=== PATIENT | male | born 1940 | race Caucasian/White ===

== ENCOUNTER 2018-01-16 22:24 | Emergency (ER) | payer MEDICARE, OTHER, SELFPAY ==
[2018-01-16 22:50] VITALS: BP 137/73; PULSE 81; RESP 20; TEMP 37.9; O2SAT 95; BMI 36.5
--- NOTE | 2018-01-16 23:09 | ED.SKABFB ---
HPI - Skin/Abscess/Foreign Bdy General Chief complaint: Skin/Abscess/Foreign Body Stated complaint: DRAIN TUBES IN STOMACH INCISION SITE IS SWELING Time Seen by Provider: 01/16/18 22:29 Source: patient and family Mode of arrival: ambulatory Limitations: no limitations History of Present Illness HPI narrative: Patient with extensive medical history including coronary artery disease status post CABG with prolonged length of stay presents to the emergency department this evening with a chief complaint of purulent drainage from chest tube insertion site on his left anterior chest. He just had the sutures in bandage removed a few days ago and today in the shower noted drainage. He has had a low-grade fever but denies any significant shortness of breath, chest pain nor nausea or vomiting. Feels fatigued but denies other specific symptoms. Bypass was on December 20 and he had complications requiring another 3 weeks of hospitalization including 3 chest tubes. He has had trouble with what sounds like a large left-sided pleural effusion versus clot within the pleura that is set to be addressed by cardiothoracic surgery at [facility] later this week Onset (ago): hour(s) Tetanus up to date: yes Location: chest (Left anterior chest tube insertion site) Severity: mild Related Data Home Medications Medication Instructions Recorded Confirmed aspirin #0 07/31/16 colchicine 0.6 mg PO QDAY #0 07/31/16 indomethacin 50 mg PO BIDP PRN #0 07/31/16 Previous Rx's Medication Instructions Recorded colchicine [Mitigare] 0.6 mg PO BID #14 cap 07/31/16 triamcinolone acetonide 1 andre TOPICAL BID #15 gm 07/31/16 oxycodone-acetaminophen [Percocet] 1 tab PO Q4HP PRN #15 tab 09/27/16 tamsulosin [Flomax] 0.4 mg PO Q DAY #7 cap 09/27/16 Allergies Allergy/AdvReac Type Severity Reaction Status Date / Time grass pollen [GRASS POLLEN] Allergy Unknown Verified 01/16/18 22:57 Review of Systems Review of Systems All systems reviewed & are unremarkable except as noted in HPI and below Constitutional Denies chills, Reports fatigue, Reports fever(s), Denies lethargy and Denies weakness Eyes Denies change in vision, Denies eye discharge, Denies irritation and Denies loss of vision ENT Ears, Nose, Mouth, and Throat: Denies change in voice, Denies neck pain and Denies sore throat Cardiovascular Denies chest pain, Denies irregular heart rhythm, Denies lightheadedness, Denies palpitations, Denies dyspnea, Denies dyspnea on exertion and Denies orthopnea Respiratory Denies cough, Denies dyspnea, Denies dyspnea on exertion and Denies wheezing Gastrointestinal Gastrointestinal: Denies abdominal pain, Denies change in bowel habits, Denies diarrhea, Denies nausea and Denies vomiting Genitourinary Denies hematuria, Denies flank pain, Denies urinary incontinence and Denies urinary urgency Musculoskeletal Denies neck pain Integumentary/Breasts Denies pruritus, Denies erythema, Denies rash and Denies wounds Comments: Wound dehiscence with purulent drainage from left anterior chest tube insertion site Neurologic Denies confusion, Denies loss of vision and Denies weakness Psychiatric Denies anxiety, Denies confusion, Denies depression, Denies homicidal ideation and Denies suicidal ideation Endocrine Reports fatigue and Denies palpitations Hematologic/Lymphatic Denies easy bruising Allergic/Immunologic Denies wheezing COUNT INCLUDES THE [facility] Medical History CAD (coronary artery disease) (Acute) HTN (hypertension) (Acute) Hyperlipidemia (Acute) Surgical History Hx of CABG (Acute) Social History Smoking Status: Never smoker Exam Narrative Exam Narrative: Pleasant 77-year-old male in mild distress. He appears fatigued and unwell Initial Vital Signs Initial Vital Signs: Vital Signs Temperature 100.2 F H 01/16/18 22:50 Pulse Rate 81 01/16/18 22:50 Respiratory Rate 20 01/16/18 22:50 Blood Pressure 137/73 H 01/16/18 22:50 Pulse Oximetry 95 01/16/18 22:50 Const General: cooperative, comfortable, well developed, in distress and ill appearing Nutritional Appearance: well nourished Orientation: alert, awake, oriented x3 and not confused HENMS Head: normocephalic and atraumatic Ears: external ears normal and TM's normal bilaterally Nose: external nose normal and No nasal discharge Face and sinus: sinuses nontender, face symmetric, no sinus tenderness and No dry mucous membranes Mouth: oral mucosae normal and moist mucous membranes Teeth and gingiva: dentition normal Throat: tonsils normal and uvula midline Chest Other: Wound dehiscence with purulent drainage left anterior chest tube insertion site. No underlying induration, fluctuance or tenderness Resp Effort & Inspection: normal respiratory effort, able to speak in complete sentences, no respiratory distress and no use of accessory muscles Auscultation: clear to auscultation bilaterally, breath sounds absent on th left, no rales, no rhonchi and no wheezes Cardio Rate: regular rate Rhythm: regular rhythm Heart Sounds: no click, no gallops, no murmurs and no rubs Pulses: normal peripheral pulses GI Inspection: non-distended Palpation: soft, no hepatosplenomegaly, No guarding, No pulsatile mass and No tender Auscultation: normal bowel sounds Back/Spine/Pelvis Back: No CVA tenderness Cervical Spine: cervical ROM normal and No pain with cervical ROM Thoracic/Lumbar Spine: thoracic and lumbar spine normal to inspection Skin General: no rashes or lesions noted, No jaundice and No petechiae Neuro General: alert, oriented x3, gait normal and no focal motor deficits Speech: speech normal Extrem General: full ROM, no clubbing, cyanosis or edema, no pedal edema and no calf tenderness Course Orders Ordered: ED Orders 01/16/18 23:49 XR chest 1V Stat 01/17/18 00:01 Wound Culture and Gram Stain Stat 01/17/18 00:17 BNP [B Type Natriuretic Peptide] Stat Basic Metabolic Panel Stat Complete Blood Count AUTO DIFF Stat Lactate (Lactic Acid) Stat Procalcitonin Stat Troponin with CK Cardiac Panel Stat 01/17/18 00:40 Blood Culture Stat Consultations Consultation #1: Called to cardiothoracic surgeon Dr. Peterson and after discussion of history, physical exam findings he request patient be sent to [facility] emergency department. I was transferred to the emergency department and spoke with Dr. James combs a regarding this patient. He is happy to accept the patient into the emergency department. Family refuses transport by EMS and feel comfortable driving by private auto. I discussed with them this is not the standard of care including risks of any deterioration in route. They understand these risks Time: 02:05 Vital Signs - 8 hr 01/16/18 22:50 Temperature 100.2 F H Pulse Rate 81 Respiratory Rate 20 Blood Pressure 137/73 H Pulse Oximetry 95 MDM - Skin/Abscess/Foreign Bdy Differential Diagnosis Likely abscess of skin or subcutaneous tissue Medical Records Attestation: I reviewed the patient's medical records. Lab Data Attestation: I reviewed the patient's lab results. Result diagrams: 01/17/18 00:17 01/17/18 00:17 Lab Results 01/17/18 01/17/18 01/17/18 Range/Units 00:17 00:17 00:17 WBC 7.2 (4.5-11.0) X10^3/uL RBC 3.94 L (4.5-5.9) X10^6/uL Hgb 11.6 L (13.5-17.5) g/dL Hct 34.9 L (41-53) % MCV 88.6 (80-100) fL MCH 29.3 (26-34) PG MCHC 33.1 (30-36) % RDW 18.2 H (11.6-14.8) % Plt Count 378 (150-400) X10^3/uL Neut % (Auto) 72.0 (50-75) % Lymph % (Auto) 14.7 L (25-40) % [place] % (Auto) 9.3 (3-14) % Eos % (Auto) 3.6 (2-4) % Baso % (Auto) 0.4 (0-2) % Neut # (Auto) 5200 (8328-4391) /uL Sodium (137-145) mmol/L Potassium (3.4-5.1) mmol/L Chloride (98-107) mmol/L Carbon Dioxide (22-32) mmol/L BUN (9-20) mg/dL Creatinine (0.66-1.25) mg/dL Estimated GFR (>60) mL/min BUN/Creatinine Ratio (6-22) Glucose (80-110) mg/dL Lactate (0.7-2.1) mmol/L Calcium (8.4-10.2) mg/dL Total Creatine Kinase 43 L (55-170) U/L Troponin I 0.026 (0.01-0.034) ng/mL B-Natriuretic Peptide (<100) Procalcitonin < 0.05 (<0.5) ng/mL 01/17/18 01/17/18 01/17/18 Range/Units 00:17 00:17 00:17 WBC (4.5-11.0) X10^3/uL RBC (4.5-5.9) X10^6/uL Hgb (13.5-17.5) g/dL Hct (41-53) % MCV (80-100) fL MCH (26-34) PG MCHC (30-36) % RDW (11.6-14.8) % Plt Count (150-400) X10^3/uL Neut % (Auto) (50-75) % Lymph % (Auto) (25-40) % [place] % (Auto) (3-14) % Eos % (Auto) (2-4) % Baso % (Auto) (0-2) % Neut # (Auto) (8453-9732) /uL Sodium 138 (137-145) mmol/L Potassium 4.8 (3.4-5.1) mmol/L Chloride 104.0 (98-107) mmol/L Carbon Dioxide 22.0 (22-32) mmol/L BUN 27.0 H (9-20) mg/dL Creatinine 1.30 H (0.66-1.25) mg/dL Estimated GFR 53.5 L (>60) mL/min BUN/Creatinine Ratio 20.8 (6-22) Glucose 114 H (80-110) mg/dL Lactate 0.8 (0.7-2.1) mmol/L Calcium 9.2 (8.4-10.2) mg/dL Total Creatine Kinase (55-170) U/L Troponin I (0.01-0.034) ng/mL B-Natriuretic Peptide 334.0 (<100) Procalcitonin (<0.5) ng/mL Imaging Data Chest x-ray: My impression: large left sided pleural effusion MDM Narrative Medical decision making narrative: Called to cardiothoracic surgery and emergency department with willing except and the patient's. Images pushed. At all forms completed and placed in folder to go with patient. Discussion at bedside with family regarding method of transport including risks associated with POV. Discharge Plan Departure Patient Disposition: [facility] Clinical Impression: Deep incisional surgical site infection Activity Restrictions/Additional Instructions: Proceed DIRECTLY to the Emergency Department at [facility] (map included) Do not eat anything until you are seen and evaluated at [facility] If any concerning symptoms develop en route, lathe puller immediately and call 911. Prescriptions: No Action aspirin 81 MG tablet,delayed release (DR/EC) Qty: 0 RF: 0 colchicine 0.6 MG tablet 0.6 mg PO QDAY Qty: 0 RF: 0 indomethacin 50 MG capsule 50 mg PO BIDP PRNQty: 0 RF: 0 colchicine [Mitigare] 0.6 MG capsule 0.6 mg PO BID Qty: 14 RF: 0 triamcinolone acetonide 0.1 % cream 1 andre Topical BID Qty: 15 RF: 0 oxycodone-acetaminophen [Percocet] 5 MG/325 MG tablet 1 tab PO Q4HP PRNQty: 15 RF: 0 tamsulosin [Flomax] 0.4 MG capsule,extended release 24hr 0.4 mg PO Q DAY Qty: 7 RF: 0
--- NOTE | 2018-01-16 23:49 | DI.RAD.S_ITS ---
PROCEDURE: XR CHEST 1V INDICATIONS: SOB TECHNIQUE: One view of the chest was acquired. COMPARISON: [facility], CT, KIDNEY/ URETER/BLADDER, 09/27/2016, 1:15. FINDINGS: Surgical changes and devices: There are postsurgical changes demonstrated in mediastinum compatible with prior CABG. Lungs and pleura: There is a moderate to large left pleural effusion with left basilar consolidation or compressive atelectasis. The right lung appears clear. Mediastinum: The left heart contours are obscured limiting evaluation of heart size. There is prominence of the mediastinal contours which is nonspecific. There is a large hiatal hernia redemonstrated. Bones and chest wall: No suspicious bony lesions. Overlying soft tissues appear unremarkable. IMPRESSION: 1. Moderate to large left pleural effusion with left basilar consolidation or compressive atelectasis. 2. Widening of the mediastinal contours of indeterminate etiology. Recommend a PA and lateral study when clinically feasible. 3. Large hiatal hernia redemonstrated. Dictated by: Abdulaziz Turner M.D. on 01/17/2018 at 10:30 Approved by: Abdulaziz Turner M.D. on 01/17/2018 at 10:33
[2018-01-17 00:34] LABS: Add Manual Diff / Slide Review NO; Basophils Percent Auto 0.4 % (0-2); Eosinophils Percent Auto 3.6 % (2-4); Hematocrit 34.9 % (41-53); Hemoglobin 11.6 g/dL (13.5-17.5); Lymphocytes Percent Auto 14.7 % (25-40); Mean Corpuscular HGB Conc 33.1 % (30-36); Mean Corpuscular Hemoglobin 29.3 PG (26-34); Mean Corpuscular Volume 88.6 fL (80-100); Monocytes Percent Auto 9.3 % (3-14); Neutrophils Absolute Auto 5200 /uL (3000-5900); Platelet Count 378 X10^3/uL (150-400); Red Blood Cell Count 3.94 X10^6/uL (4.5-5.9); Red Cell Distribution Width 18.2 % (11.6-14.8); White Blood Cell Count 7.2 X10^3/uL (4.5-11.0)
[2018-01-17 00:38] LABS: Lactate (Lactic Acid) 0.8 mmol/L (0.7-2.1)
[2018-01-17 00:41] LABS: Creatine Kinase 43 U/L (55-170)
[2018-01-17 00:54] LABS: Troponin I 0.026 ng/mL (0.01-0.034)
[2018-01-17 00:55] LABS: BUN Creatinine Ratio 20.8 (6-22); Calcium 9.2 mg/dL (8.4-10.2); Estimated Glomerular Filt Rate 53.5 mL/min (>60); Glucose 114 mg/dL (80-110); Sodium 138 mmol/L (137-145)
[2018-01-17 00:58] LABS: HEMOLYSIS 70 (0-50)
[2018-01-17 01:00] LABS: Potassium 4.8 mmol/L (3.4-5.1); Procalcitonin < 0.05 ng/mL (<0.5)
--- NOTE | 2018-01-17 02:07 | ED_ITS ---
HPI - Skin/Abscess/Foreign Bdy General Chief complaint: Skin/Abscess/Foreign Body Stated complaint: DRAIN TUBES IN STOMACH INCISION SITE IS SWELING Time Seen by Provider: 01/16/18 22:29 Source: patient and family Mode of arrival: ambulatory Limitations: no limitations History of Present Illness HPI narrative: Patient with extensive medical history including coronary artery disease status post CABG with prolonged length of stay presents to the emergency department this evening with a chief complaint of purulent drainage from chest tube insertion site on his left anterior chest. He just had the sutures in bandage removed a few days ago and today in the shower noted drainage. He has had a low-grade fever but denies any significant shortness of breath, chest pain nor nausea or vomiting. Feels fatigued but denies other specific symptoms. Bypass was on December 20 and he had complications requiring another 3 weeks of hospitalization including 3 chest tubes. He has had trouble with what sounds like a large left-sided pleural effusion versus clot within the pleura that is set to be addressed by cardiothoracic surgery at [facility] later this week Onset (ago): hour(s) Tetanus up to date: yes Location: chest (Left anterior chest tube insertion site) Severity: mild Related Data Home Medications Medication Instructions Recorded Confirmed aspirin #0 07/31/16 colchicine 0.6 mg PO QDAY #0 07/31/16 indomethacin 50 mg PO BIDP PRN #0 07/31/16 Previous Rx's Medication Instructions Recorded colchicine [Mitigare] 0.6 mg PO BID #14 cap 07/31/16 triamcinolone acetonide 1 andre TOPICAL BID #15 gm 07/31/16 oxycodone-acetaminophen [Percocet] 1 tab PO Q4HP PRN #15 tab 09/27/16 tamsulosin [Flomax] 0.4 mg PO Q DAY #7 cap 09/27/16 Allergies Allergy/AdvReac Type Severity Reaction Status Date / Time grass pollen [GRASS POLLEN] Allergy Unknown Verified 01/16/18 22:57 Review of Systems Review of Systems All systems reviewed & are unremarkable except as noted in HPI and below Constitutional Denies chills, Reports fatigue, Reports fever(s), Denies lethargy and Denies weakness Eyes Denies change in vision, Denies eye discharge, Denies irritation and Denies loss of vision ENT Ears, Nose, Mouth, and Throat: Denies change in voice, Denies neck pain and Denies sore throat Cardiovascular Denies chest pain, Denies irregular heart rhythm, Denies lightheadedness, Denies palpitations, Denies dyspnea, Denies dyspnea on exertion and Denies orthopnea Respiratory Denies cough, Denies dyspnea, Denies dyspnea on exertion and Denies wheezing Gastrointestinal Gastrointestinal: Denies abdominal pain, Denies change in bowel habits, Denies diarrhea, Denies nausea and Denies vomiting Genitourinary Denies hematuria, Denies flank pain, Denies urinary incontinence and Denies urinary urgency Musculoskeletal Denies neck pain Integumentary/Breasts Denies pruritus, Denies erythema, Denies rash and Denies wounds Comments: Wound dehiscence with purulent drainage from left anterior chest tube insertion site Neurologic Denies confusion, Denies loss of vision and Denies weakness Psychiatric Denies anxiety, Denies confusion, Denies depression, Denies homicidal ideation and Denies suicidal ideation Endocrine Reports fatigue and Denies palpitations Hematologic/Lymphatic Denies easy bruising Allergic/Immunologic Denies wheezing [facility] Medical History CAD (coronary artery disease) (Acute) HTN (hypertension) (Acute) Hyperlipidemia (Acute) Surgical History Hx of CABG (Acute) Social History Smoking Status: Never smoker Exam Narrative Exam Narrative: Pleasant 77-year-old male in mild distress. He appears fatigued and unwell Initial Vital Signs Initial Vital Signs: Vital Signs Temperature 100.2 F H 01/16/18 22:50 Pulse Rate 81 01/16/18 22:50 Respiratory Rate 20 01/16/18 22:50 Blood Pressure 137/73 H 01/16/18 22:50 Pulse Oximetry 95 01/16/18 22:50 Const General: cooperative, comfortable, well developed, in distress and ill appearing Nutritional Appearance: well nourished Orientation: alert, awake, oriented x3 and not confused HENID Head: normocephalic and atraumatic Ears: external ears normal and TM's normal bilaterally Nose: external nose normal and No nasal discharge Face and sinus: sinuses nontender, face symmetric, no sinus tenderness and No dry mucous membranes Mouth: oral mucosae normal and moist mucous membranes Teeth and gingiva: dentition normal Throat: tonsils normal and uvula midline Chest Other: Wound dehiscence with purulent drainage left anterior chest tube insertion site. No underlying induration, fluctuance or tenderness Resp Effort & Inspection: normal respiratory effort, able to speak in complete sentences, no respiratory distress and no use of accessory muscles Auscultation: clear to auscultation bilaterally, breath sounds absent on th left , no rales, no rhonchi and no wheezes Cardio Rate: regular rate Rhythm: regular rhythm Heart Sounds: no click, no gallops, no murmurs and no rubs Pulses: normal peripheral pulses GI Inspection: non-distended Palpation: soft, no hepatosplenomegaly, No guarding, No pulsatile mass and No tender Auscultation: normal bowel sounds Back/Spine/Pelvis Back: No CVA tenderness Cervical Spine: cervical ROM normal and No pain with cervical ROM Thoracic/Lumbar Spine: thoracic and lumbar spine normal to inspection Skin General: no rashes or lesions noted, No jaundice and No petechiae Neuro General: alert, oriented x3, gait normal and no focal motor deficits Speech: speech normal Extrem General: full ROM, no clubbing, cyanosis or edema, no pedal edema and no calf tenderness Course Orders Ordered: ED Orders 01/16/18 23:49 XR chest 1V Stat 01/17/18 00:01 Wound Culture and Gram Stain Stat 01/17/18 00:17 BNP [B Type Natriuretic Peptide] Stat Basic Metabolic Panel Stat Complete Blood Count AUTO DIFF Stat Lactate (Lactic Acid) Stat Procalcitonin Stat Troponin with CK Cardiac Panel Stat 01/17/18 00:40 Blood Culture Stat Consultations Consultation #1: Called to cardiothoracic surgeon Dr. Peterson and after discussion of history, physical exam findings he request patient be sent to [facility] emergency department. I was transferred to the emergency department and spoke with Dr. James combs a regarding this patient. He is happy to accept the patient into the emergency department. Family refuses transport by EMS and feel comfortable driving by private auto. I discussed with them this is not the standard of care including risks of any deterioration in route. They understand these risks Time: 02:05 Vital Signs - 8 hr 01/16/18 22:50 Temperature 100.2 F H Pulse Rate 81 Respiratory Rate 20 Blood Pressure 137/73 H Pulse Oximetry 95 MDM - Skin/Abscess/Foreign Bdy Differential Diagnosis Likely abscess of skin or subcutaneous tissue Medical Records Attestation: I reviewed the patient's medical records. Lab Data Attestation: I reviewed the patient's lab results. Result diagrams: 01/17/18 00:17 01/17/18 00:17 Lab Results 01/17/18 01/17/18 01/17/18 Range/Units 00:17 00:17 00:17 WBC 7.2 (4.5-11.0) X10^3/uL RBC 3.94 L (4.5-5.9) X10^6/uL Hgb 11.6 L (13.5-17.5) g/dL Hct 34.9 L (41-53) % MCV 88.6 (80-100) fL MCH 29.3 (26-34) PG MCHC 33.1 (30-36) % RDW 18.2 H (11.6-14.8) % Plt Count 378 (150-400) X10^3/uL Neut % (Auto) 72.0 (50-75) % Lymph % (Auto) 14.7 L (25-40) % [place] % (Auto) 9.3 (3-14) % Eos % (Auto) 3.6 (2-4) % Baso % (Auto) 0.4 (0-2) % Neut # (Auto) 5200 (1890-5727) /uL Sodium (137-145) mmol/L Potassium (3.4-5.1) mmol/L Chloride (98-107) mmol/L Carbon Dioxide (22-32) mmol/L BUN (9-20) mg/dL Creatinine (0.66-1.25) mg/dL Estimated GFR (>60) mL/min BUN/Creatinine Ratio (6-22) Glucose (80-110) mg/dL Lactate (0.7-2.1) mmol/L Calcium (8.4-10.2) mg/dL Total Creatine Kinase 43 L (55-170) U/L Troponin I 0.026 (0.01-0.034) ng/mL B-Natriuretic Peptide (<100) Procalcitonin < 0.05 (<0.5) ng/mL 01/17/18 01/17/18 01/17/18 Range/Units 00:17 00:17 00:17 WBC (4.5-11.0) X10^3/uL RBC (4.5-5.9) X10^6/uL Hgb (13.5-17.5) g/dL Hct (41-53) % MCV (80-100) fL MCH (26-34) PG MCHC (30-36) % RDW (11.6-14.8) % Plt Count (150-400) X10^3/uL Neut % (Auto) (50-75) % Lymph % (Auto) (25-40) % [place] % (Auto) (3-14) % Eos % (Auto) (2-4) % Baso % (Auto) (0-2) % Neut # (Auto) (7900-3001) /uL Sodium 138 (137-145) mmol/L Potassium 4.8 (3.4-5.1) mmol/L Chloride 104.0 (98-107) mmol/L Carbon Dioxide 22.0 (22-32) mmol/L BUN 27.0 H (9-20) mg/dL Creatinine 1.30 H (0.66-1.25) mg/dL Estimated GFR 53.5 L (>60) mL/min BUN/Creatinine Ratio 20.8 (6-22) Glucose 114 H (80-110) mg/dL Lactate 0.8 (0.7-2.1) mmol/L Calcium 9.2 (8.4-10.2) mg/dL Total Creatine Kinase (55-170) U/L Troponin I (0.01-0.034) ng/mL B-Natriuretic Peptide 334.0 (<100) Procalcitonin (<0.5) ng/mL Imaging Data Chest x-ray: My impression: large left sided pleural effusion MDM Narrative Medical decision making narrative: Called to cardiothoracic surgery and emergency department with willing except and the patient's. Images pushed. At all forms completed and placed in folder to go with patient. Discussion at bedside with family regarding method of transport including risks associated with POV. Discharge Plan Departure Patient Disposition: [facility] Clinical Impression: Deep incisional surgical site infection Activity Restrictions/Additional Instructions: Proceed DIRECTLY to the Emergency Department at [facility] (map included) Do not eat anything until you are seen and evaluated at [facility] If any concerning symptoms develop en route, pot puller immediately and call 911. Prescriptions: No Action aspirin 81 MG tablet,delayed release (DR/EC) Qty: 0 RF: 0 colchicine 0.6 MG tablet 0.6 mg PO QDAY Qty: 0 RF: 0 indomethacin 50 MG capsule 50 mg PO BIDP PRNQty: 0 RF: 0 colchicine [Mitigare] 0.6 MG capsule 0.6 mg PO BID Qty: 14 RF: 0 triamcinolone acetonide 0.1 % cream 1 andre Topical BID Qty: 15 RF: 0 oxycodone-acetaminophen [Percocet] 5 MG/325 MG tablet 1 tab PO Q4HP PRNQty: 15 RF: 0 tamsulosin [Flomax] 0.4 MG capsule,extended release 24hr 0.4 mg PO Q DAY Qty: 7 RF: 0
== END 2018-01-17 02:15 | disposition short-term general hospital (02) ==
PROVIDERS: Emergency Provider Emergency Medicine
DX: T81.4XXA Infection following a procedure, initial encounter (principal)
CPT/HCPCS: 36415; 36591; 71045; 80048; 82550; 82553; 83605; 83880; 84145; 84484; 85025; 87040; 87070; 87075; 87077; 87186; 87205; 99283; 99284

== ENCOUNTER 2018-06-23 10:00 | Outpatient (RCR) | payer MEDICARE, OTHER, SELFPAY ==
[2018-02-08 13:53] VITALS: BP 120/64; BP 122/66; BMI 33.6
--- NOTE | 2018-02-08 14:40 | CR.IEVALNOTE ---
CABG X 2 12/20/17 MCKEON-LAD, REVERSE SAPH-DISTAL RCA CR Initial Assessment Report CR Cardiac Rehab Initial Assessment Start: 02/08/18 13:39 Freq: Status: Active Protocol: Document 02/08/18 13:53 SHIRA (Rec: 02/08/18 14:21 SHIRA [id number]) Cardiac Rehabilitation Exercise Risk Risk Moderate % 66 EF Comment: 01/18/18 AICD No Pacemaker No Heart Rhythm sr Left Arm Blood Pressure (90/60-120/80 mmHg) 122/66 H Blood Pressure Method Manual Cuff/Auscultation Right Arm Blood Pressure (90/60-120/80 mmHg) 120/64 Blood Pressure Method Manual Cuff/Auscultation Blood Pressure Position Sitting Apical Resting Heart Rate: 88 Pulse Assessment Method Pulse Ox/Monitor Cardiac Rehabilitation Exercise Fall Risk History of Falling (Immediate or No Previous) Secondary Diagnosis (More Than 2 Medical Yes Diagnoses) Ambulatory Aid Crutches/cane/walker IV/Heparin Lock No Gait/Transferring Normal/bedrest/immobile Mental Status Oriented to own ability Score Total 30 Risk Level Moderate Fall Risk Action Implement Moderate Fall Risk Precautions Comment using walker since surgery. 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. Invited to education sessions to hear the latest in cardiac research Nurse/Patient Discussion Yes Patient Following Diet Plan No Patient's Nutritional Goals he didn't really list any. in his opinion, they eat well. recently gave up drinking a ton of Pepsi because the doctor told him to. Education Primary Language [place] Speech Impairment(s) no Pulp Roller Required No Hearing Ability Hard of Hearing Comment on Hearing has hearing aids but didn't wear them on intake. new prior to surgery Visual Impairment No Limitations Visual Difficutly None Education on Intake Chest Pain Short of Breath Headache Lightheaded or Dizzy Musculoskeletal Pain General Malaise Tobacco Use N/A Hx Hypertension Yes Medications amlodipine 10mg, metoprolol 50mg qd, Goal of BP <130/80 Yes HTN Education Discussion yes. reviewed effects of exercise on bp Medications Reconciled Yes CR Psychosocial Evaluation Goal Per pt, not a group person and here somewhat reluctantly. discussed benefits of monitored exercise with in room and she commented that this is a safe place to increase activity. Identifies Stressors states normally life isn't stressful but that the prolonged recovery and lack of energy is really an issue. 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 Edema slight Stress Management Class Yes Heart Disease & Emotion Film Yes Readiness Cooperative Patient's Story Increasing fatigue over a few months and failed stress test. Treatment Prescribed for Individual Yes Needs No Treatment Change Yes: Please Continue with Cardiopulmonary Rehabilitation as Ordered Date 02/08/18 Document 02/08/18 14:28 CFS (Rec: 02/08/18 14:38 CFS [id number]) Cardiac Rehabilitation Exercise Fall Risk Comment Will use saucer while on physioball and be next to railing. Comment: Does not use much at home, only while out and about. Home Exercise none current Symptoms: Abnormal Gait Body Alignment Posture Forward Head Leaning Ambulation Assistive Device Front Wheeled Walker Orthotic/Prosthetic Devices or Brace: No Exercise TM METS 1.77 Angina with Exercise no Exercise Tolerance Fair Additional Comment shuffle CR Pre Exercise Evaluation Orientation Self Pulse Check LINN PRE Scale Exercise Safety Equipment Orientation Warm Up/Cool Down Patient Short-term Goal(s) perform 20min on TM continuously at a met level of 2.5 in 6 weeks. Patient Assisted Goal(s) Decrease fatigue by exerciseing regularly in CR and home. And performing 40 min of continously cardio in 12 weeks. CR Exercises Prescription Exercise Duration (minutes) 20 METs (resistance level) 2 Frequency 2x/wk RPE 11-14 Exercise Duration (minutes) 20 METs (resistance level) 2 Frequency 2x/wk RPE 11-14 Pounds 3 Number of Reps 12 Number of Sets 2 Frequency 1x/wk RPE 12-13 Comment Sternal precautions Band Resistance 3 Number of Reps 12 Number of Sets 1 Frequency 1x/wk RPE 12-13 Comment sternal precautions
[2018-03-10 15:21] VITALS: BP 118/60
--- NOTE | 2018-03-10 15:35 | CR.REVALNOTE ---
CR RE Assessment Report 12.20.2017 CABG X2 CR Cardiac Rehab Re-Assessment Start: 03/09/18 13:47 Freq: Status: Active Protocol: Document 03/09/18 14:15 AA (Rec: 03/09/18 14:20 AA [id number]) Cardiac Rehab Exercise Risk Re-Eval Apical Resting Heart Rate: 77 Target Heart Rate: 92 CR Lifestyle Re-Assessment Home Exercise No Achieved Exercise Re-Evaluation Nustep MET Goal 2.43 Treadmill MET Goal 1.9 RPE N/A Weights 2# Bands 3 light green Equipment Goals TM 2.5 Mets NA 3.5 Mets Number/Value 3 LVL 4 Progress to Goal increase as tolerated % Improvement TM 7% improvement NS 31% improvement Short Term Pt is able to perform continously for 20 mins on TM and NS, working to increase stamina and endurance to be able to reach 2.5 METS. 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 Continue to improve stamina and endurance to acheive and maintain 2.5 mets for 20 mins. Document 03/10/18 15:21 [facility] (Rec: 03/10/18 15:35 [facility] [id number]) Cardiac Rehab Exercise Risk Re-Eval Dx: 12.20.2017 CABG x 2;MCKEON-LAD Risk Moderate Heart Rhythm NSR Left Arm Blood Pressure (90/60-120/80 mmHg) 118/60 Apical Resting Heart Rate: 77 Cardiac Rehab Nutrition Re-Eval Lipids Re-Drawn No History of Diabetes No Weight 103.419 kg Progress to Weight Goal HAS NOT PROGRESSED Dietary Consult Yes Nurse/Patient Discussion Yes Dietary Goal verbalized by Patient WEIGHT LOSS Education Hypertension 118/60 PRE 122/72 POST EXERCISE Medications REVIEWED. C/O DIZZINESS DISCUSSED GETTING OFF FLOMAX A TRIAL. Progress to Goal OUT OF FLOMAX AND HASNT TAKEN IN 4 DAYS AND FEELING MUCH BETTER. WILL LET MD KNOW. Education:Instruct PABLO DONE CR Psychosocial Re-Evaluation Progress to Goal SINCE DIZZINESS HAS SUBSIDED FEELING MUCH BETTER ABOUT EXERCISING. Psych Consult No Uses Stress Management Skills Yes Note NEGATIVE CR Psychosocial Provider Eval Treatment Prescribed for Individual Yes Needs No Treatment Change Yes: Please Continue with Cardiopulmonary Rehabilitation as Ordered Date 03/10/18
--- NOTE | 2018-03-24 11:12 | CR.EDUC ---
CR Education Report CYNTHIA WATSON CR Education Start: 02/08/18 13:39 Freq: Status: Active Protocol: Document 02/09/18 14:14 JCP (Rec: 02/09/18 14:15 JCP [id number]) CR Education Education MET WITH RAJIV SINGH RD Document 02/14/18 11:48 JCP (Rec: 02/14/18 11:49 JCP [id number]) CR Education Education FEELING DIZZY DURING EXERCISE. VS OK. LUNG SOUNDS DECREASED RIGHT AND CRACKLES IN THE LEFT . MD LAST WEEK FELT A 25% IMPROVEMENT IN PLEURL EFFUSION .CHAO Document 03/02/18 11:15 SHIRA (Rec: 03/02/18 11:15 SHIRA [id number]) CR Education Education MRSA WITH ASHLEY Document 03/07/18 11:21 JCP (Rec: 03/07/18 11:22 JCP [id number]) CR Education Education CYNTHIA HAS STOPPED HIS FLOMAX FOR 4 DAYS DUE TO RX RUNNING OUT AND FEELS THE DIZZINESS IS PRETTY MUCH GONE NOW. ADVISED TO LET HIS PCP KNOW. HE SEES HER NEXT WEEK.CHAO Document 03/09/18 15:40 JCP (Rec: 03/09/18 15:40 JCP [id number]) CR Education Education ANTI INFLAMMATORY FOODS AND MEDITATION Document 03/14/18 14:14 JCP (Rec: 03/14/18 14:15 JCP [id number]) CR Education Education discussed results of his chest ct. hemothorax is decreasing. He will not have an intervention to remove.
--- NOTE | 2018-03-24 11:12 | CR.EDUC ---
CYNTHIA WATSON CR Education Report CR Education Start: 02/08/18 13:39 Freq: Status: Active Protocol: Document 02/09/18 14:14 JCP (Rec: 02/09/18 14:15 JCP [id number]) CR Education Education MET WITH RAJIV SNIGH RD Document 02/14/18 11:48 JCP (Rec: 02/14/18 11:49 JCP [id number]) CR Education Education FEELING DIZZY DURING EXERCISE. VS OK. LUNG SOUNDS DECREASED RIGHT AND CRACKLES IN THE LEFT . MD LAST WEEK FELT A 25% IMPROVEMENT IN PLEURL EFFUSION .CHAO Document 03/02/18 11:15 SHIRA (Rec: 03/02/18 11:15 SHIRA [id number]) CR Education Education MRSA WITH ASHLEY Document 03/07/18 11:21 JCP (Rec: 03/07/18 11:22 JCP [id number]) CR Education Education CYNTHIA HAS STOPPED HIS FLOMAX FOR 4 DAYS DUE TO RX RUNNING OUT AND FEELS THE DIZZINESS IS PRETTY MUCH GONE NOW. ADVISED TO LET HIS PCP KNOW. HE SEES HER NEXT WEEK.CHAO Document 03/09/18 15:40 JCP (Rec: 03/09/18 15:40 JCP [id number]) CR Education Education ANTI INFLAMMATORY FOODS AND MEDITATION Document 03/14/18 14:14 JCP (Rec: 03/14/18 14:15 JCP [id number]) CR Education Education discussed results of his chest ct. hemothorax is decreasing. He will not have an intervention to remove.
--- NOTE | 2018-03-28 13:43 | CR.EDUC ---
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) Past Medical History (Last Updated 02/05/18 @ 14:04 by THANG Mora) Insomnia, persistent (Chronic) Obstructive sleep apnea of adult (Chronic) Hyperlipidemia (Chronic) HTN (hypertension) (Chronic) CAD (coronary artery disease) (Chronic) Provider Summary Visit Care Team Role Provider Type Doctor Miscellaneous, MD Attending Provider Non-Staff Specialty: Medical Address: Phone: Fax: Email: CR Education Report CR Education Start: 02/08/18 13:39 Freq: Status: Active Protocol: Document 02/09/18 14:14 JCP (Rec: 02/09/18 14:15 JCP [id number]) CR EDUCATION Education MET WITH RAJIV SINGH RD Document 02/14/18 11:48 JCP (Rec: 02/14/18 11:49 JCP [id number]) CR EDUCATION Education FEELING DIZZY DURING EXERCISE. VS OK. LUNG SOUNDS DECREASED RIGHT AND CRACKLES IN THE LEFT . MD LAST WEEK FELT A 25% IMPROVEMENT IN PLEURL EFFUSION .CHAO Document 03/02/18 11:15 SHIRA (Rec: 03/02/18 11:15 SHIRA [id number]) CR EDUCATION Education MRSA WITH ASHLEY Document 03/07/18 11:21 JCP (Rec: 03/07/18 11:22 JCP [id number]) CR EDUCATION Education CYNTHIA HAS STOPPED HIS FLOMAX FOR 4 DAYS DUE TO RX RUNNING OUT AND FEELS THE DIZZINESS IS PRETTY MUCH GONE NOW. ADVISED TO LET HIS PCP KNOW. HE SEES HER NEXT WEEK.CHAO Document 03/09/18 15:40 JCP (Rec: 03/09/18 15:40 JCP [id number]) CR EDUCATION Education ANTI INFLAMMATORY FOODS AND MEDITATION Document 03/14/18 14:14 JCP (Rec: 03/14/18 14:15 JCP [id number]) CR EDUCATION Education discussed results of his chest ct. hemothorax is decreasing. He will not have an intervention to remove.
[2018-04-07 15:48] VITALS: BP 128/84
[2018-05-05 11:47] VITALS: BP 140/72
[2018-06-02 14:50] VITALS: BP 136/82
[2018-06-23 11:54] VITALS: BMI 35.1
[2018-06-23 13:25] VITALS: BP 142/64
== END 2018-06-24 08:31 ==
LOC: CAR 10:00
DX: Z95.1 Presence of aortocoronary bypass graft (principal)
CPT/HCPCS: 93798

== ENCOUNTER → 2020-05-16 13:42 | Outpatient (CLI) | payer MEDICARE, OTHER, SELFPAY ==
[2020-05-16 14:18] LABS: BUN Creatinine Ratio 21.1 (6-22); Blood Urea Nitrogen 27 mg/dL (9-20); Calcium 9.2 mg/dL (8.4-10.2); Carbon Dioxide 27 mmol/L (22-32); Chloride 106 mmol/L (98-107); Estimated Glomerular Filt Rate 54.2 mL/min (>60); Glucose 192 mg/dL (80-110); HEMOLYSIS 21 (0-50); Potassium 4.6 mmol/L (3.4-5.1); Sodium 142 mmol/L (137-145); Uric Acid 5.5 mg/dL (3.5-8.5)
== END ==
PROVIDERS: Referring Provider Urology; Visit Provider Urology
DX: N20.0 Calculus of kidney (principal)
CPT/HCPCS: 36415; 80048; 84550

== ENCOUNTER 2020-08-12 05:27 | Emergency (ER) | payer MEDICARE, OTHER, SELFPAY ==
[2020-08-12] VITALS (12 sets, daily range): BP systolic 116–142; BP diastolic 60–98; PULSE 62–93; RESP 19–32; TEMP 36.4; O2SAT 94–96
--- NOTE | 2020-08-12 05:46 | ED_ITS ---
HPI - Chest Pain <Isaias ShepherdDO erna - Last Filed: 08/13/20 03:53> General Chief Complaint: Chest Pain Stated Complaint: SHOULDER AND ARM PAIN Time Seen by Provider: 08/12/20 05:28 Source: patient Mode of arrival: Ambulatory Limitations: no limitations History of Present Illness HPI narrative: 79M former smoker with history of CAD s/p CABG with post operative complications a few years ago presents with left shoulder and arm pain that has been present more often than not for the past few years. He states they have tried multiple at home therapies including various salves, lotions and DP techniques which generally work but today's episode seems to not be responding to typical therapies. His pain was more significant prior to his arrival and is largely absent currently. He states it is achy to sharp in nature and radiates into his arm. He denies any numbness, tingling or weakness. He denies any provocation, palliation or radiation. He states that he had stress test a few months ago at [facility] which he apparently failed but there is no plan moving forward. He denies any cardiac equivalent such as dizziness, weakness or lightheadedness. He is not short of breath and denies any fever or chills. He has no nausea, vomiting or unexplained diaphoresis. Related Data Home Medications Medication Instructions Recorded Confirmed aspirin 81 mg PO Q24H #0 07/31/16 04/14/18 colchicine 0.6 mg PO QDAY #0 07/31/16 04/14/18 acetaminophen 325 mg capsule 650 mg PO Q6H PRN 01/26/18 04/14/18 acyclovir 400 mg tablet 400 mg PO DAILY tab 01/26/18 04/14/18 albuterol sulfate 1.25 mg INHALATION Q4H PRN 01/26/18 04/14/18 allopurinol 100 mg tablet 200 mg PO DAILY tab 01/26/18 04/14/18 amlodipine 10 mg tablet 10 mg PO DAILY 01/26/18 04/14/18 atorvastatin 40 mg tablet 40 mg PO DAILY 01/26/18 04/14/18 finasteride 5 mg tablet 5 mg PO DAILY 01/26/18 04/14/18 furosemide 20 mg tablet 20 mg PO DAILY 01/26/18 04/14/18 metoprolol succinate 50 mg 50 mg PO DAILY 01/26/18 04/14/18 tablet,extended release 24 hr nitroglycerin 0.4 mg sublingual 0.4 mg SL Q5M PRN 01/26/18 04/14/18 tablet omeprazole 20 mg capsule,delayed 20 mg PO BID cap 01/26/18 04/14/18 release zolpidem 5 mg tablet 5 mg PO BEDTIME PRN 01/26/18 04/14/18 albuterol sulfate 2.5 mg INHALATION Q4H PRN 02/08/18 04/14/18 multivitamin 1 tab PO DAILY 02/08/18 04/14/18 polyethylene glycol 3350 [Miralax] 0.5 g/kg PO DAILY 02/08/18 04/14/18 potassium citrate 1,080 mg PO QPC 02/08/18 04/14/18 vitamin B complex 1 cap PO DAILY 02/08/18 04/14/18 Respironics Dreamstation CPAP #1 ea 02/13/19 02/13/19 Previous Rx's Medication Instructions Recorded triamcinolone acetonide 1 andre TOPICAL BID #15 gm 07/31/16 tamsulosin [Flomax] 0.4 mg PO Q DAY #7 cap 09/27/16 tramadol [Ultram] 50 mg PO Q6H PRN #10 tab 08/12/20 Allergies Allergy/AdvReac Type Severity Reaction Status Date / Time grass pollen [GRASS POLLEN] Allergy Unknown Verified 04/14/18 13:32 Review of Systems <Isaias Gutiérrez DO - Last Filed: 08/13/20 03:53> Constitutional Constitutional: Denies chills, Denies fatigue, Denies fever(s), Denies frequent falls, Denies lethargy and Denies weakness Eyes Eyes: Denies change in vision, Denies eye discharge, Denies irritation and Denies loss of vision ENT Ears, Nose, Mouth, and Throat: Denies change in voice, Denies dizziness, Denies neck pain, Denies sore throat and Denies throat swelling Cardiovascular Cardiovascular: Denies chest pain, Denies irregular heart rhythm, Denies lightheadedness, Denies palpitations, Denies dyspnea, Denies dyspnea on exertion and Denies orthopnea Respiratory Respiratory: Denies cough, Denies dyspnea, Denies dyspnea on exertion and Denies wheezing Gastrointestinal Gastrointestinal: Denies abdominal pain, Denies change in bowel habits, Denies diarrhea, Denies nausea and Denies vomiting Musculoskeletal Musculoskeletal: Reports arthralgias, Denies neck pain and Denies numbness Integumentary/Breasts Skin/Breast: Denies pruritus, Denies erythema, Denies rash and Denies wounds Neurologic Neurologic: Denies behavioral changes, Denies confusion, Denies dizziness, Denies frequent falls, Denies loss of vision, Denies numbness and Denies weakness Psychiatric Psychiatric: Denies anxiety, Denies behavioral changes, Denies confusion, Denies depression, Denies homicidal ideation and Denies suicidal ideation Endocrine Endocrine: Denies fatigue, Denies flushing and Denies palpitations Hematologic/Lymphatic Hematologic/Lymphatic: Denies easy bruising Allergic/Immunologic Allergic/Immunologic: Denies urticaria, Denies throat swelling and Denies wheezing Patient History <Isaias Gutiérrez DO - Last Filed: 08/13/20 03:53> Medical History (Updated 08/12/20 @ 08:35 by Charlotte Marino DO) CAD (coronary artery disease) HTN (hypertension) Hyperlipidemia Insomnia, persistent Obstructive sleep apnea of adult Surgical History Hx of CABG (~12/2017) Social History marital status: household members: spouse lives independently: Yes education level: college Smoking Status: Never smoker substance use type: does not use Smoking Status: Never smoker alcohol intake frequency: 0-2 drinks per day Substance Use Type: does not use Exam <Isaias Gutiérrez DO - Last Filed: 08/13/20 03:53> Narrative Exam Narrative: GENERAL: [79] year old patient appears stated age. Well- nourished, well-developed patient, in mild distress. Anxious. Hard of hearing HEAD: Atraumatic. Normocephalic. EYES: Pupils equal round and reactive. Extraocular motions intact. No scleral icterus. No injection or drainage. ENT: Nose without bleeding, purulent drainage. Throat without erythema, tonsillar hypertrophy or exudate. Airway patent. NECK: Trachea midline. Non tender CARDIOVASCULAR: Regular rate and rhythm without murmurs, gallops, or rubs. RESPIRATORY: Clear to auscultation. Breath sounds equal bilaterally. No wheezes, rales, or rhonchi. GASTROINTESTINAL: Abdomen soft, non-tender, nondistended. EXTREMITIES: No edema or joint tenderness. BACK: Nontender without deformity or crepitance. No flank tenderness. NEURO: AOx3. SKIN: No rash or erythema of visible areas Initial Vital Signs Initial Vital Signs: Vital Signs Pulse Rate 78 08/12/20 05:40 Pulse Oximetry 95 08/12/20 05:40 <Charlotte Marino, DO - Last Filed: 08/12/20 08:55> Initial Vital Signs Initial Vital Signs: Vital Signs Pulse Rate 78 08/12/20 05:40 Pulse Oximetry 95 08/12/20 05:40 Course <Isaias Gutiérrez DO - Last Filed: 08/13/20 03:53> Orders Ordered: Discontinued Medications Aspirin (Aspirin 81 Mg Chew Tab) 324 mg PO NOW ONE Stop: 08/12/20 05:58 Last Admin: 08/12/20 06:09 Dose: 324 mg Documented by: RENETTA Sodium Chloride (Normal Saline 0.9%) 1,000 mls @ 150 mls/hr IV CONT HERIBERTO Last Admin: 08/12/20 06:09 Dose: 150 mls/hr Documented by: RENETTA Nitroglycerin (Nitroglycerin 0.4 Mg Sl Tab) 0.4 mg SL [id number] PRN PRN Reason: Chest Pain Last Admin: 08/12/20 06:09 Dose: 0.4 mg Documented by: RENETTA Vital Signs Vital signs: Vital Signs - 8 hr 08/12/20 05:40 08/12/20 05:41 08/12/20 06:00 Temperature 97.6 F Pulse Rate 78 93 H 76 Respiratory Rate 20 28 H Blood Pressure 139/85 142/98 H Pulse Oximetry 95 94 96 08/12/20 06:09 08/12/20 06:30 08/12/20 06:31 Temperature Pulse Rate 67 75 77 Respiratory Rate 19 21 Blood Pressure 142/98 H 124/65 Pulse Oximetry 95 95 08/12/20 07:00 08/12/20 07:30 08/12/20 07:50 Temperature Pulse Rate 68 62 79 Respiratory Rate 29 H 24 25 H Blood Pressure 124/81 129/60 126/81 Pulse Oximetry 96 96 95 08/12/20 08:00 08/12/20 08:30 08/12/20 08:31 Temperature Pulse Rate 69 76 75 Respiratory Rate 22 32 H 23 Blood Pressure 116/71 141/79 H Pulse Oximetry 95 96 95 <Charlotte Marino DO - Last Filed: 08/12/20 08:55> Orders Ordered: Discontinued Medications Aspirin (Aspirin 81 Mg Chew Tab) 324 mg PO NOW ONE Stop: 08/12/20 05:58 Last Admin: 08/12/20 06:09 Dose: 324 mg Documented by: RENETTA Sodium Chloride (Normal Saline 0.9%) 1,000 mls @ 150 mls/hr IV CONT HERIBERTO Last Admin: 08/12/20 06:09 Dose: 150 mls/hr Documented by: RENETTA Nitroglycerin (Nitroglycerin 0.4 Mg Sl Tab) 0.4 mg SL [id number] PRN PRN Reason: Chest Pain Last Admin: 08/12/20 06:09 Dose: 0.4 mg Documented by: RENETTA Vital Signs Vital signs: Vital Signs - 8 hr 08/12/20 05:40 08/12/20 05:41 08/12/20 06:00 Temperature 97.6 F Pulse Rate 78 93 H 76 Respiratory Rate 20 28 H Blood Pressure 139/85 142/98 H Pulse Oximetry 95 94 96 08/12/20 06:09 08/12/20 06:30 08/12/20 06:31 Temperature Pulse Rate 67 75 77 Respiratory Rate 19 21 Blood Pressure 142/98 H 124/65 Pulse Oximetry 95 95 08/12/20 07:00 08/12/20 07:30 08/12/20 07:50 Temperature Pulse Rate 68 62 79 Respiratory Rate 29 H 24 25 H Blood Pressure 124/81 129/60 126/81 Pulse Oximetry 96 96 95 08/12/20 08:00 08/12/20 08:30 08/12/20 08:31 Temperature Pulse Rate 69 76 75 Respiratory Rate 22 32 H 23 Blood Pressure 116/71 141/79 H Pulse Oximetry 95 96 95 MDM - Chest Pain <Isaias Gutiérrez DO - Last Filed: 08/13/20 03:53> Lab Data Result diagrams: 08/12/20 05:55 08/12/20 05:55 Labs: Lab Results 08/12/20 08/12/20 08/12/20 Range/Units 05:55 05:55 06:55 WBC 6.8 (4.5-11.0) X10^3/uL RBC 4.68 (4.5-5.9) X10^6/uL Hgb 15.4 (13.5-17.5) g/dL Hct 46.2 (41-53) % MCV 98.7 (80-100) fL MCH 33.0 (26-34) PG MCHC 33.4 (30-36) % RDW 14.0 (11.6-14.8) % Plt Count 159 (150-400) X10^3/uL Neut % (Auto) 63.9 (50-75) % Lymph % (Auto) 25.3 (25-40) % [place] % (Auto) 7.9 (3-14) % Eos % (Auto) 1.8 L (2-4) % Baso % (Auto) 1.1 (0-2) % Neut # (Auto) 4300 (7415-2020) /uL Lymph # (Auto) 1700 (6984-9441) /uL [place] # (Auto) 500 (0-900) /uL Eos # (Auto) 100 (0-450) /uL Baso # (Auto) 100 (0-100) /uL Sodium 139 (137-145) mmol/L Potassium 4.2 (3.4-5.1) mmol/L Chloride 108 H (98-107) mmol/L Carbon Dioxide 27 (22-32) mmol/L BUN 24 H (9-20) mg/dL Creatinine 1.21 (0.66-1.25) mg/dL Estimated GFR 57.8 L (>60) mL/min BUN/Creatinine Ratio 19.8 (6-22) Glucose 120 H (80-110) mg/dL Calcium 9.2 (8.4-10.2) mg/dL Total Bilirubin 0.8 (0.2-1.3) mg/dL AST 26 (17-59) IU/L ALT 24 (<50) IU/L Alkaline Phosphatase 79 (38-126) U/L Total Creatine Kinase 113 (55-170) U/L CK-MB (CK-2) 2.54 H (<2.37) ng/mL CK-MB (CK-2) Rel Index 2.2 (1.5-5.0) % Troponin I 0.034 (0.01-0.034) ng/mL Total Protein 7.0 (6.3-8.2) g/dL Albumin 4.0 (3.5-5.0) g/dL Globulin 3.0 (1.7-4.1) g/dL Albumin/Globulin Ratio 1.3 (1.0-2.8) Lipase 138 (23-300) U/L COVID-19 PCR Negative (Negative) <Charlotte Marino, - Last Filed: 08/12/20 08:55> Lab Data Attestation: I reviewed the patient's lab results. Labs: Lab Results 08/12/20 08/12/20 08/12/20 Range/Units 05:55 05:55 06:55 WBC 6.8 (4.5-11.0) X10^3/uL RBC 4.68 (4.5-5.9) X10^6/uL Hgb 15.4 (13.5-17.5) g/dL Hct 46.2 (41-53) % MCV 98.7 (80-100) fL MCH 33.0 (26-34) PG MCHC 33.4 (30-36) % RDW 14.0 (11.6-14.8) % Plt Count 159 (150-400) X10^3/uL Neut % (Auto) 63.9 (50-75) % Lymph % (Auto) 25.3 (25-40) % [place] % (Auto) 7.9 (3-14) % Eos % (Auto) 1.8 L (2-4) % Baso % (Auto) 1.1 (0-2) % Neut # (Auto) 4300 (8710-1832) /uL Lymph # (Auto) 1700 (0014-9586) /uL [place] # (Auto) 500 (0-900) /uL Eos # (Auto) 100 (0-450) /uL Baso # (Auto) 100 (0-100) /uL Sodium 139 (137-145) mmol/L Potassium 4.2 (3.4-5.1) mmol/L Chloride 108 H (98-107) mmol/L Carbon Dioxide 27 (22-32) mmol/L BUN 24 H (9-20) mg/dL Creatinine 1.21 (0.66-1.25) mg/dL Estimated GFR 57.8 L (>60) mL/min BUN/Creatinine Ratio 19.8 (6-22) Glucose 120 H (80-110) mg/dL Calcium 9.2 (8.4-10.2) mg/dL Total Bilirubin 0.8 (0.2-1.3) mg/dL AST 26 (17-59) IU/L ALT 24 (<50) IU/L Alkaline Phosphatase 79 (38-126) U/L Total Creatine Kinase 113 (55-170) U/L CK-MB (CK-2) 2.54 H (<2.37) ng/mL CK-MB (CK-2) Rel Index 2.2 (1.5-5.0) % Troponin I 0.034 (0.01-0.034) ng/mL Total Protein 7.0 (6.3-8.2) g/dL Albumin 4.0 (3.5-5.0) g/dL Globulin 3.0 (1.7-4.1) g/dL Albumin/Globulin Ratio 1.3 (1.0-2.8) Lipase 138 (23-300) U/L COVID-19 PCR Negative (Negative) Imaging Data Chest x-ray: Attestation: I personally reviewed and interpreted this imaging study as follows: Radiologist's Impression: Patient has left sided infiltrate but also present on prior CXR. Overnights read did not have comparison available. CT scan - chest: Radiologist's Impression: [address] [id number] Scan ReportSigned Patient: Ilia Hernandez CMR#: [id number]: 1Acct:[id number]/Sex: 79 / MDate of Service: 08/12/20Loc: EDAccession Number: [id number] Procedure: CT chest w con Ordering Provider: Isaias Gutiérrez D.O. PROCEDURE: CT CHEST W CON INDICATIONS: chest pain, shoulder, infiltrates on Xray with effusion TECHNIQUE: After the administration of intravenous contrast, 5 mm thick sections acquired from the pulmonary apices to the posterior costophrenic angles. 1 mm axial lung, 5 mm thick coronal and sagittal reformats and 7 mm axial MIP were acquired. For radiation dose reduction, the following was used: automated exposure control, adjustment of mA and/or kV according to patient size. COMPARISON: [facility], CT, KIDNEY/ URETER/BLADDER, 09/27/2016, 1:15. [facility], CR, XR CHEST 1V, 08/12/2020, 6:11. FINDINGS: Image quality: Excellent. Lungs and pleura: No acute air space opacities. Trace left effusion. Central and peripheral airways are patent and normal in caliber. Mediastinum: Heart size is enlarged. No pericardial effusion. No mediastinal or hilar adenopathy by size criteria. Thoracic aorta is normal in size. Main pulmonary artery is enlarged measuring 42 mm in transverse dimension. Esophagus is normal in caliber. Prominent hiatal hernia. Bones and chest wall: No suspicious bony lesions. No vertebral body compression fractures. No axillary or supraclavicular adenopathy by size criteria. Thyroid gland is unremarkable . Abdomen: Kidneys are atrophic with nonobstructing punctate calculi on the left. Exophytic simple renal cyst is noted on the right. These are unchanged. There is an isodense exophytic focus along the lateral aspect of the superior right renal pole on series 2, image 57 measuring 8 mm. This appears to have increased in size compared to 2017. Otherwise, visualized upper abdominal solid organs appear normal. Upper abdominal bowel loops are normal in caliber. IMPRESSION: 1. Trace left effusion. No consolidations. 2. Pulmonary artery enlargement suggestive of pulmonary artery hypertension. 3. Interval increase in size of exophytic isodense focus along the right renal pole as above. This could represent a complex cyst. However, other etiologies cannot be excluded. Dedicated ultrasound focused on this region is recommended for further evaluation Dictated by: Amelia Barney M.D. on 08/12/2020 at 8:00 Approved by: Amelia Barney M.D. on 08/12/2020 at 8:05 ECG Data Attestation: I personally reviewed and interpreted this ECG as follows: Interpretation: EKG 1., unclear if AFib or sinus rhythm as there do appear to be P-waves with the majority of QRS complexes. The patient does appear to have underlying atrial rate. No ST elevation appreciated. Nonspecific T-wave change. No priors available for comparison. EKG 2. Sinus rhythm with premature atrial complexes. Non specific change. No ST elevation appreciated. [facility] Narrative Medical decision making narrative: Patient signed out to myself by Dr. Gutiérrez. Labs, current imaging and EKG reviewed. Patient has acute on chronic chest/arm pain with known CAD s/p CABG. Patient states similar to past pain but was not resolved with his typical therapies. CXR shows changes on left side but patient has had prior pleural effusions possibly empyema on left side s/p CABG in December of 2017 which patient was treated for at [facility]. Plan for CT chest for further evaluation. CT shows trace left effusion, pulmarny artery enlargement suggesting pulm artery hypertension and increase in focus on right renal pole possibly complex cyst. Dedicated US would be appropriate. Patient and I reviewed his findings today including labs, EKG and imaging. We spoke at length about his symptoms, the course of his symptoms, ROS and plan for care. Patient is currently transitioning to Cardiology in [place] with Dr. Logan. He has been told he should not take ibuprofen type medications, Tylenol is not very helpful. Topical medications are somewhat helpful for her shoulder but we did discuss a short course of medication for breakthrough pain which patient was agreeable to. Patient was present for the 2nd half of our discussions and all questions were answered. Discharge Plan Departure Patient Disposition: Home Clinical Impression: Left shoulder pain Instructions: DI for Atypical Chest Pain Activity Restrictions/Additional Instructions: Follow up with your physician in the next week. Continue your home medications as prescribed. You may also take narcotic pain medication if needed. This medication can make you sleepy do not drive, perform hazardous activities or make any major decisions while taking it. It is also constipating. I would recommend taking a stool softener any time he take narcotic pain medication. Your imaging does show a small amount of fluid in your left lung and signs that the pressure in your pulmonary arteries is elevated. It is also noted that there is a density on the right kidney seen on prior imaging which has changed in size, this may be a complex cyst but it is recommended that you get ultrasound imaging of your kidneys for further evaluation. Your physician can order this for you. Return to the emergency department for new or worsening symptoms, shortness of breath, lightheadedness or passing out, new, changing or worsening chest pain, new weakness numbness or difficulty using her extremities, persistent vomiting, swelling of her extremities or other new or concerning symptoms. Prescriptions: New tramadol [Ultram] 50 mg tablet 50 mg PO Q6H PRN (Reason: pain) Qty: 10 RF: 0 No Action aspirin 81 MG tablet,delayed release (DR/EC) 81 mg PO Q24H Qty: 0 RF: 0 colchicine 0.6 MG tablet 0.6 mg PO QDAY Qty: 0 RF: 0 triamcinolone acetonide 0.1 % cream 1 andre Topical BID Qty: 15 RF: 0 tamsulosin [Flomax] 0.4 MG capsule,extended release 24hr 0.4 mg PO Q DAY Qty: 7 RF: 0 multivitamin Tablet 1 tab PO DAILY RF: 0 albuterol sulfate 2.5 mg /3 mL (0.083 %) Solution For Nebulization 2.5 mg INHALATION Q4H PRN (Reason: Wheezing) RF: 0 potassium citrate 10 mEq (1,080 mg) Tablet Extended Release 1,080 mg PO QPC RF: 0 polyethylene glycol 3350 [Miralax] 17 gram/dose Powder 0.5 g/kg PO DAILY RF: 0 vitamin B complex Capsule 1 cap PO DAILY RF: 0 allopurinol 100 mg tablet 200 mg PO DAILY RF: 0 acyclovir 400 mg tablet 400 mg PO DAILY RF: 0 amlodipine 10 mg tablet 10 mg PO DAILY RF: 0 atorvastatin 40 mg tablet 40 mg PO DAILY RF: 0 finasteride 5 mg tablet 5 mg PO DAILY RF: 0 furosemide 20 mg tablet 20 mg PO DAILY RF: 0 metoprolol succinate 50 mg tablet extended release 24 hr 50 mg PO DAILY RF: 0 omeprazole 20 mg capsule,delayed release(DR/EC) 20 mg PO BID RF: 0 albuterol sulfate 2.5 mg /3 mL (0.083 %) solution for nebulization 1.25 mg INHALATION Q4H PRNRF: 0 nitroglycerin 0.4 mg tablet, sublingual 0.4 mg SL Q5M PRN (Reason: Chest Pain) RF: 0 zolpidem 5 mg tablet 5 mg PO BEDTIME PRN (Reason: Insomnia) RF: 0 acetaminophen 325 mg capsule 650 mg PO Q6H PRN (Reason: Pain (Scale Score 1-3)) RF: 0 (DME) [facility] [employer] Dreamstation CPAP Qty: 1 RF: 0
--- NOTE | 2020-08-12 05:57 | DI.RAD.S_ITS ---
PROCEDURE: XR CHEST 1V INDICATIONS: chest pain equivalent TECHNIQUE: One view of the chest was acquired. COMPARISON: [facility], CT, CT CHEST W CON, 08/12/2020, 7:37. [facility], CR, XR CHEST 1V, 01/16/2018, 23:58. FINDINGS: Surgical changes and devices: Status post CABG procedure. Lungs and pleura: Small left pleural effusions. Subtle opacities in the lungs bilaterally left greater than right may represent atelectasis or multilobar pneumonia. Mediastinum: Mediastinal contours appear normal. Heart is enlarged. Bones and chest wall: No suspicious bony lesions. Overlying soft tissues appear unremarkable. IMPRESSION: 1. Small left-sided pleural effusion. 2. Subtle bilateral opacities likely represent atelectasis, however early pneumonia can not be excluded by imaging alone. Dictated by: Gerda Crockett MD, PhD on 08/12/2020 at 9:05 Approved by: Gerda Crockett MD, PhD on 08/12/2020 at 9:06
[2020-08-12] MEDS: SODIUM CHLORIDE 0.9% 1,000 ML 150 ML IV (06:09)
[2020-08-12] MEDS: NITROGLYCERIN 0.4 MG SL TAB SL (06:09)
[2020-08-12] MEDS: ASPIRIN 81 MG CHEW TAB 324 MG PO (06:09)
[2020-08-12 06:11] LABS: Add Manual Diff / Slide Review NO; Basophils Absolute Auto 100 /uL (0-100); Basophils Percent Auto 1.1 % (0-2); Eosinophils Absolute Auto 100 /uL (0-450); Eosinophils Percent Auto 1.8 % (2-4); Hematocrit 46.2 % (41-53); Hemoglobin 15.4 g/dL (13.5-17.5); Lymphocytes Absolute Auto 1700 /uL (1100-4500); Lymphocytes Percent Auto 25.3 % (25-40); Mean Corpuscular HGB Conc 33.4 % (30-36); Mean Corpuscular Volume 98.7 fL (80-100); Monocytes Absolute Auto 500 /uL (0-900); Monocytes Percent Auto 7.9 % (3-14); Neutrophils Absolute Auto 4300 /uL (1500-7000); Neutrophils Percent Auto 63.9 % (50-75); Platelet Count 159 X10^3/uL (150-400); Red Blood Cell Count 4.68 X10^6/uL (4.5-5.9); White Blood Cell Count 6.8 X10^3/uL (4.5-11.0)
[2020-08-12 06:12] LABS: Alanine Aminotransferase 24 IU/L (<50); Albumin Globulin Ratio 1.3 (1.0-2.8); Alkaline Phosphatase 79 U/L (38-126); Aspartate Aminotransferase 26 IU/L (17-59); BUN Creatinine Ratio 19.8 (6-22); Bilirubin Total 0.8 mg/dL (0.2-1.3); Blood Urea Nitrogen 24 mg/dL (9-20); Calcium 9.2 mg/dL (8.4-10.2); Carbon Dioxide 27 mmol/L (22-32); Chloride 108 mmol/L (98-107); Creatine Kinase 113 U/L (55-170); Estimated Glomerular Filt Rate 57.8 mL/min (>60); Glucose 120 mg/dL (80-110); HEMOLYSIS < 15 (0-50); Lipase 138 U/L (23-300); Potassium 4.2 mmol/L (3.4-5.1); Sodium 139 mmol/L (137-145)
[2020-08-12 06:24] LABS: Troponin I 0.034 ng/mL (0.01-0.034)
[2020-08-12 06:28] LABS: CKMB % Relative Index 2.2 % (1.5-5.0); Creatine Kinase MB 2.54 ng/mL (<2.37)
--- NOTE | 2020-08-12 06:54 | DI.CT.S_ITS ---
PROCEDURE: CT CHEST W CON INDICATIONS: chest pain, shoulder, infiltrates on Xray with effusion TECHNIQUE: After the administration of intravenous contrast, 5 mm thick sections acquired from the pulmonary apices to the posterior costophrenic angles. 1 mm axial lung, 5 mm thick coronal and sagittal reformats and 7 mm axial MIP were acquired. For radiation dose reduction, the following was used: automated exposure control, adjustment of mA and/or kV according to patient size. COMPARISON: [facility], CT, KIDNEY/ URETER/BLADDER, 09/27/2016, 1:15. [facility], CR, XR CHEST 1V, 08/12/2020, 6:11. FINDINGS: Image quality: Excellent. Lungs and pleura: No acute air space opacities. Trace left effusion. Central and peripheral airways are patent and normal in caliber. Mediastinum: Heart size is enlarged. No pericardial effusion. No mediastinal or hilar adenopathy by size criteria. Thoracic aorta is normal in size. Main pulmonary artery is enlarged measuring 42 mm in transverse dimension. Esophagus is normal in caliber. Prominent hiatal hernia. Bones and chest wall: No suspicious bony lesions. No vertebral body compression fractures. No axillary or supraclavicular adenopathy by size criteria. Thyroid gland is unremarkable . Abdomen: Kidneys are atrophic with nonobstructing punctate calculi on the left. Exophytic simple renal cyst is noted on the right. These are unchanged. There is an isodense exophytic focus along the lateral aspect of the superior right renal pole on series 2, image 57 measuring 8 mm. This appears to have increased in size compared to 2017. Otherwise, visualized upper abdominal solid organs appear normal. Upper abdominal bowel loops are normal in caliber. IMPRESSION: 1. Trace left effusion. No consolidations. 2. Pulmonary artery enlargement suggestive of pulmonary artery hypertension. 3. Interval increase in size of exophytic isodense focus along the right renal pole as above. This could represent a complex cyst. However, other etiologies cannot be excluded. Dedicated ultrasound focused on this region is recommended for further evaluation Dictated by: Amelia Barney M.D. on 08/12/2020 at 8:00 Approved by: Amelia Barney M.D. on 08/12/2020 at 8:05
[2020-08-12 07:19] LABS: COVID19 -Nasal RAPID Negative (Negative)
--- NOTE | 2020-09-07 16:38 | PC.NURSE ---
Late entry: IV NS 150 mL discontinued at 0850 hrs.
== END 2020-08-12 09:05 | disposition home or self-care (01) ==
PROVIDERS: Emergency Medicine; Emergency Provider Emergency Medicine
DX: R07.89 Other chest pain (principal); I25.10 Atherosclerotic heart disease of native coronary artery without angina pectoris; Z95.1 Presence of aortocoronary bypass graft; M25.512 Pain in left shoulder; Z20.828 Contact with and (suspected) exposure to other viral communicable diseases; R94.31 Abnormal electrocardiogram [ECG] [EKG]
CPT/HCPCS: 36415; 71045; 71260; 80053; 82550; 82553; 83690; 84484; 85025; 87635; 93005; 96360; 96361; 99284; Q9967

== ENCOUNTER → 2020-12-18 15:54 | Outpatient (CLI) | payer MEDICARE, OTHER, SELFPAY ==
--- NOTE | 2020-12-18 15:59 | DI.MRI.S_ITS ---
PROCEDURE: MR SHOULDER RT WO CON INDICATIONS: Primary osteoarthritis, right shoulder. Pain TECHNIQUE: Noncontrast oblique coronal T2 fast spin echo with fat saturation, oblique sagittal T1 spin echo and T2 fast spin echo with fat saturation, axial T1 spin echo and T2 fast spin echo with fat saturation through the shoulder. COMPARISON: [facility] Outside Film, RG, SHOULDER MIN 2VW (RT), 09/18/2020, 13:34. FINDINGS: Image quality: Diagnostic. Rotator cuff: There is a severe bursal surface tear of the superior cuff at its insertion involving the posterior fibers of the supraspinatus and anterior fibers of the infraspinatus. This measures approximately 1.4 cm in anteroposterior dimension. There is slight retraction of the torn fibers by approximately 0.4 cm. A small full-thickness communication cannot be excluded. There is mild tendinopathy of the subscapularis with minimal intrasubstance partial tearing distally at its insertion. The teres minor appears intact. Sagittal images demonstrate no fatty muscle atrophy. Bones and bursae: No bone marrow contusions or fractures. There is moderate acromioclavicular joint degeneration. The acromion demonstrates slight lateral downsloping, without an os acromiale. There is slight inferior osteophytosis. A small amount of subacromial-subdeltoid bursal fluid is present. Capsule and soft tissues: The posteroinferior labrum demonstrates mild irregular tearing. The long head of the biceps tendon demonstrates mild tendinopathy proximally. The rotator interval demonstrates mild edema. IMPRESSION: 1. Severe bursal surface tearing in the superior cuff at its insertion as described with a possible small full thickness communication not excluded. 2. Mild tendinopathy with minimal partial tearing in the distal subscapularis. 3. Mild irregular tearing in the posteroinferior labrum. 4. Moderate tendinopathy of the acromioclavicular joint with small amount of subacromial/subdeltoid bursal fluid. 5. Mild tendinopathy of the proximal biceps tendon. 6. Mild edema in the rotator interval suggesting sequelae of impingement in the appropriate clinical context. Dictated by: Abdulaziz Turner M.D. on 12/19/2020 at 8:06 Approved by: Abdulaziz Turner M.D. on 12/19/2020 at 9:17
== END ==
PROVIDERS: PCP Orthopaedic Surgery; Referring Provider Orthopaedic Surgery; Visit Provider Orthopaedic Surgery
DX: M19.011 Primary osteoarthritis, right shoulder (principal); S43.431A Superior glenoid labrum lesion of right shoulder, initial encounter
CPT/HCPCS: 73221

== ENCOUNTER → 2022-07-29 10:52 | Outpatient (CLI) | payer MEDICARE, OTHER, SELFPAY ==
--- NOTE | 2022-07-29 11:07 | DIET.CONS ---
Dietary Consultation Note Assessment: 81y M and Luis attending RD visit for help with CKD3b. Pt working with Dr. 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 Pt and spouse desire ongoing nutrition management to preserve pts renal function to avoid dialysis. Usual Day: B: iced tea (caffeine free, some monkfruit) or hot chocolate, sometimes oatmeal c walnuts, brown sugar and a little 2% milk, sometimes half croissant with butter and jam no snacks, sometimes a little orange juice or iced tea L: split hamburger and a few fries with , and a little Pepsi but usually 1/2 sandwich with a few chips, orange negrete pepper and an Izze drink. Sn: very occasionally rice cake with PB D: chicken, salmon with steamed veg (green beans/broccoli, corn), not often starches, soup is often on menu Sn: Outshine Popsicle Physical Activity: useful activities, used to walk on treadmill but does not anymore. eGFR: 31 (L), Cr 2.09 (H), K+ 4.2 (WNL), Phos 2.3 (borderline) Ht: 5'8 Wt: 204# BMI: UBW: Nutrition Diagnosis: altered nutrition related laboratory values (eGFR, Cr) r/t renal dysfunction aeb pt with CKD3b, pt and spouse desire support for renal diet, eGFR 31 L, Cr 2.09 H, K+ 4.2 WNL, Phos 2.3 borderline. Interventions: 1. Educated pt and spouse using Kidney Diet worksheet on following 1.5g sodium restriction, 2g K+ restriction, moderate protein diet with limited intake phosphorus. Practiced label reading and problem solved usual meals to optimize diet for renal health. Educated on the nuances of phosphorus containing foods. EER: 1.5g sodium, 2g potassium Monitoring/Evaluations: f/u prn, pts spouse would like renal labs sent to me when completed to follow patient. Electronically Signed by: Sita Green 07/29/22 11:07 Clinical Dietitian [address] [id number]
== END ==
PROVIDERS: PCP Nurse Practitioner Family; Referring Provider Nurse Practitioner Family; Visit Provider Nurse Practitioner Family
DX: N18.32 Chronic kidney disease, stage 3b (principal); Z71.3 Dietary counseling and surveillance
CPT/HCPCS: 97802